=== PATIENT | male | born 1965 | race Caucasian/White ===

== ENCOUNTER 2018-07-23 07:59 | Emergency (ER) | payer OTHER ==
[~2018-07-23] VITALS: Ht 180.3 cm; Wt 90.7 kg
--- NOTE | ~2018-07-23 | EKG ---
[place] [address] [facility] [place] [place] [address] ELECTROCARDIOGRAM REPORT Name: CHARLIE CORTES Room #: REG TAY Fuentes#: [id number] Admission: 07/23/18 Attend Phys: Discharge: Date of : 69 Report #: [id number] THIS REPORT FOR: //name// [facility] ED Test Date: 2018-07-23 Test Time: 08:01:46 Pat Name: CHARLIE CORTES Department: Room: Gender: Neurophysiology Tech: : 1965 Requested By: Maria Victoria Odom Order Number: [id number] MD: Benedict Bernal Measurements Intervals [place] Rate: 77 P: 62 OK: 152 QRS: 73 QRSD: 104 T: 48 QT: 405 QTc: 459 Interpretive Statements Sinus rhythm No previous ECG available for comparison Electronically Signed On 07-23-2018 8:55:41 [employer] by Benedict Bernal [email or web address] <ELECTRONICALLY SIGNED> By: Benedict Bernal MD, [facility] 07/23/18 0855 0801 0801 Benedict Bernal MD, FACC /EPI
[2018-07-23 09:03] LABS: ABSOLUTE NEUTROPHILS 7.3 thou/uL (1.4-8.2); BASOPHILS 0.4 % (0.0-2.0); EOSINOPHILS 1.2 % (0.0-3.0); HEMATOCRIT 51.7 % (42.0-52.0); HEMOGLOBIN 17.8 gm/dL (14.0-18.0); LYMPHOCYTES 23.4 % (24.0-44.0); MCHC 34.4 g/dL (28.0-37.0); MCV 95.7 fL (80.0-100.0); MONOCYTES 9.5 % (1.0-8.0); PLATELET COUNT 239 thou/uL (150-400); POLYS 65.5 % (36.0-66.0); RDW 15.2 % (10.5-14.5); WBC 11.2 thou/uL (4.0-11.0)
[2018-07-23 09:05] LABS: CALCIUM 9.2 mg/dL (8.5-10.1); MAGNESIUM 1.6 mg/dL (1.8-2.4); POTASSIUM 3.8 mmol/L (3.5-5.1)
[2018-07-23] MEDS ORDERED: PROZAC20 MG PO (09:17)
[2018-07-23] MEDS ORDERED: NEURONTIN 300300 M1 PO (09:17)
[2018-07-23] MEDS ORDERED: TRAZODONE HCL50 MG PO (09:18)
[2018-07-23 09:35] VITALS: BP 178/91
== END 2018-07-23 10:01 | disposition home or self-care (01) ==
LOC: ER 07:59
PROVIDERS: Emergency Medicine
DX: E83.42 Hypomagnesemia (principal); I10 Essential (primary) hypertension; E11.9 Type 2 diabetes mellitus without complications; Z87.891 Personal history of nicotine dependence